=== PATIENT | female | born 1975 | race Caucasian/White ===

== ENCOUNTER 2017-02-11 03:15 | Emergency (ER) | payer OTHER ==
[~2017-02-11] VITALS: Ht 157.5 cm; Wt 104.3 kg
[2017-02-11 03:28] VITALS: BP 151/88
[2017-02-11] MEDS: POTASSIUM CHLORIDE 10 MEQ TABER PO ONE (03:52)
[2017-02-11 03:56] VITALS: BP 151/88
== END 2017-02-11 03:56 | disposition home or self-care (01) ==
LOC: MED 03:15
DX: E87.6 Hypokalemia (principal); R20.2 Paresthesia of skin; R25.2 Cramp and spasm; Z88.0 Allergy status to penicillin
CPT/HCPCS: 99282